=== PATIENT | female | born 1970 | race Caucasian/White ===

== ENCOUNTER 2017-01-29 09:03 | Day surgery (SDC) | payer BC ==
[~2017-01-29 09:03] MED LIST: PROBIOTIC1 EA10 PO; PROTEIN PO; SHAKEOLOGY PO; SYNTHROID137 MC1 PO
== END 2017-01-29 16:00 ==
LOC: SRG 09:03 → SHSB 09:04 → PACU 12:44 → SHSB 13:35
PROC: 0HBU0ZZ Excision of Left Breast, Open Approach (ICD-10-PCS; principal; 2017-01-29)
DX: D24.2 Benign neoplasm of left breast (principal); E03.9 Hypothyroidism, unspecified; F32.9 Major depressive disorder, single episode, unspecified; Z79.899 Other long term (current) drug therapy; Z87.440 Personal history of urinary (tract) infections; Z80.3 Family history of malignant neoplasm of breast; Z90.89 Acquired absence of other organs; Z90.711 Acquired absence of uterus with remaining cervical stump; Z98.890 Other specified postprocedural states
CPT/HCPCS: J0690; J2765; J3010